=== PATIENT | male | born 1980 | race African-American/Black ===

== ENCOUNTER 2016-12-06 01:49 | Emergency (ER) | payer MEDICAID, OTHER ==
[~2016-12-06] VITALS: Ht 170.2 cm; Wt 72.0 kg
[~2016-12-06 01:49] MED LIST: CYCL-259 PO; NAPR500T3 PO
[2016-12-06] MEDS ORDERED: HYDR100C2 PO (02:02)
[2016-12-06] MEDS ORDERED: FOLI-17 PO (02:02)
[2016-12-06 02:21] LABS: ASPARTATE AMINO TRANSFERASE 15 U/L (15-37); BLOOD UREA NITROGEN 15 mg/dL (7-18)
[2016-12-06 02:32] LABS: IS PT STATUS REG ER OR PRE ER? YES
[2016-12-06 03:09] VITALS: BP 127/77
== END 2016-12-06 03:12 | disposition home or self-care (01) ==
LOC: ED 02:01
DX: R07.2 Precordial pain (principal); Z88.6 Allergy status to analgesic agent
CPT/HCPCS: 36415; 71010; 80053; 84484; 85025; 93005; 99285